=== PATIENT | female | born 1960 | race Caucasian/White ===

== ENCOUNTER → 2020-10-20 09:46 | Outpatient (CLI) | payer OTHER, SELFPAY ==
--- NOTE | ~2020-10-20 | US_ITS ---
EXAMINATION: US thyroid DATE: 10/20/2020 10:19 INDICATION: Nontoxic multinodular goiter. TECHNIQUE: Multiple ultrasound images of the thyroid were obtained. COMPARISON: Ultrasound 03/11/2019, 03/03/2014 FINDINGS: The right thyroid lobe measures 5.4 x 1.5 x 1.8 cm. The left thyroid lobe measures 5.5 x 1.5 x 1.3 c m. The thyroid is diffusely hypoechoic with heterogeneous echogenicity. Vascularity is normal. In th e right thyroid lobe, there is a 9 mm solid, very hypoechoic, [id number]-[id number] nodule with ill-defined margin without echogenic foci (TI-RADS TR4). In the left thyroid lobe, there is a 7 mm solid, very h ypoechoic, olpmb-[id number]-[id number] nodule with smooth margin without echogenic foci (TR4). IMPRESSION: 1. Stable small thyroid nodules, likely not clinically significant. No follow-up is needed. Reviewed, dictated and finalized at location B. IMPRESSION: 1. Stable small thyroid nodules, likely not clinically significant. No follow-u p is needed.
== END ==
PROVIDERS: PCP Internal Medicine; Visit Provider Internal Medicine Endocrinology, Diabetes & Metabolism
DX: E04.2 Nontoxic multinodular goiter (principal)
CPT/HCPCS: 76536

== ENCOUNTER 2020-11-01 08:56 | Outpatient (RCR) | payer OTHER, SELFPAY ==
[2020-11-01 09:06] VITALS: BMI 30.2
[2020-11-01 09:08] VITALS: BMI 30.2
== END 2021-01-15 12:01 | disposition home or self-care (01) ==
LOC: ANHDMC 08:56
PROVIDERS: PCP Internal Medicine; Visit Provider Internal Medicine
DX: E66.9 Obesity, unspecified (principal); E78.5 Hyperlipidemia, unspecified; R73.03 Prediabetes; K76.0 Fatty (change of) liver, not elsewhere classified; Z71.3 Dietary counseling and surveillance
CPT/HCPCS: 97802

== ENCOUNTER → 2021-08-10 07:35 | Outpatient (CLI) | payer OTHER, SELFPAY ==
--- NOTE | ~2021-08-10 | XR_ITS ---
XR lumbar spine 2-3V DATE: 08/10/2021 08:14 INDICATION: Right knee and leg pain TECHNIQUE: AP, lateral and coned lateral lumbosacral views COMPARISON: None FINDINGS: There is diffuse osteopenia. There is slight dextroscoliosis of the lumbar spine. There is normal alignment of the lumbar spine. No fracture or bone destruction is evident. The includ ed lower thoracic and lumbar pedicles are intact. There is moderately prominent degenerative disc disease at T12-L1, L1 to and severe degenerative disc disease at L2-3. There is moderate degenerative disc disease at L3-4. The sacroiliac joints are intact. IMPRESSION: Multilevel degenerative disc disease, most pronounced at L2-3 Osteopenia Reviewed, dictated and finalized at location A. AR WORKER
--- NOTE | ~2021-08-10 | XR_ITS ---
XR knee RT min 4V DATE: 08/10/2021 08:14 INDICATION: Right knee and leg pain TECHNIQUE: Welch, standing AP, PA and lateral views COMPARISON: None FINDINGS: Superior pole patellar enthesopathy at quadriceps tendon insertion. No fracture or dislocation, periosteal reaction or bone destruction is detected. There is moderate amount loss of joint space height at the medial compartment likely due to osteoarth ritis. No fracture or dislocation or joint effusion. No periosteal reaction or bone destruction, radiopaque intra-articular loose body or chondrocalcinosis. IMPRESSION: Mild osteoarthritis at the patellofemoral joint Reviewed, dictated and finalized at location A. ASSOC
== END ==
PROVIDERS: PCP Internal Medicine; Visit Provider Internal Medicine
DX: M17.11 Unilateral primary osteoarthritis, right knee (principal); M51.36 Other intervertebral disc degeneration, lumbar region; M85.88 Other specified disorders of bone density and structure, other site
CPT/HCPCS: 72100; 73564

== ENCOUNTER 2021-12-06 07:07 | Outpatient (CLI) | payer OTHER, SELFPAY ==
--- NOTE | ~2021-12-06 | MM_ITS ---
EXAMINATION: MM screening [facility] BI w júnior HISTORY: Screening TECHNIQUE: Craniocaudal and mediolateral oblique 3-D tomosynthesis images were obtained and synthetic 2-D images were generated. CAD analysis was submitted and interpreted. COMPARISON: Comparison to multiple prior studies sequentially, with oldest reviewed study dated 01/28. BREAST PARENCHYMAL COMPOSITION: There are scattered areas of fibroglandular density. FINDINGS: There is no evidence of suspicious mass, calcification, or architectural distortion to sugg est malignancy in either breast. There has been no suspicious interval change. IMPRESSION: 1. No mammographic evidence of malignancy. 2. Recommend routine screening mammography in one year. BI-RADS Category 1: Negative Reviewed, dictated and finalized at location A.
== END 2021-12-06 07:08 | disposition home or self-care (01) ==
LOC: CHSIMG 07:09
PROVIDERS: PCP Internal Medicine; Visit Provider Internal Medicine
DX: Z12.31 Encounter for screening mammogram for malignant neoplasm of breast (principal)
CPT/HCPCS: 77063; 77067

== ENCOUNTER → 2021-12-27 10:16 | Outpatient (CLI) | payer OTHER, SELFPAY ==
--- NOTE | ~2021-12-27 | US_ITS ---
EXAMINATION: US transvaginal DATE: 12/27/2021 11:07 INDICATION: Cervical polyp. Postmenopausal. TECHNIQUE: Multiple transvaginal sonographic images of the pelvis were obtained. COMPARISON: None. FINDINGS: The uterus measures 7.1 x 4.6 x 4.8 cm. There is no free fluid in the pelvis. The endometrial complex measures 4 mm in thickness. There is a 1.7 cm submucosal fibroid. The cervix is normal. The ovaries are not visualized. IMPRESSION: 1. 1.7 cm submucosal fibroid. Reviewed, dictated and finalized at location A.
== END ==
PROVIDERS: PCP Internal Medicine; Visit Provider Internal Medicine
DX: Z78.0 Asymptomatic menopausal state (principal); N84.1 Polyp of cervix uteri
CPT/HCPCS: 76830

== ENCOUNTER → 2022-04-04 09:40 | Outpatient (CLI) | payer OTHER, SELFPAY ==
--- NOTE | ~2022-04-04 | DEXA_ITS ---
Bone Density Report Name: NALINI FAUSTIN Age: 61 Sex: Female Ethnicity: White Date of : 1960 Indication: postmenopausal; screening for osteoporosis; height loss; Referring Provider: Shakeel Fuentes Study: Bone densitometry was performed. Exam Date: April 04, 2022 Accession number: [id number] Bone Density: Region BMD T-score Z-score Classification AP Spine (L1, L4) 1.011 -0.2 1.4 Normal Femoral Neck (Left) 0.852 0.0 1.5 Normal Total Hip (Left) 0.998 0.5 1.6 Normal Femoral Neck (Right) 0.843 -0.1 1.4 Normal Total Hip (Right) 0.995 0.4 1.6 Normal Total Hip Mean 0.997 0.5 1.6 Normal World Health Organization criteria for BMD impression classify patients as: Normal (T-score at or above -1.0), Osteopenia (T-score between -1.0 and -2.5), or Osteoporosis (T-score at or below -2.5). 10-year Fracture Risk: FRAX not reported because: All T-scores for Spine Total, Hip Total, Femoral Neck at or above -1.0 Clinical Information Provided by Patient: Has used the following medications: Vitamin D, MTV Patient maximum height was 67.75 Menopause Age: 46 No regular weight bearing exercise Drinks caffeinated beverages Onset of menses at age 10 Number of children 1 Impression: The patient has normal bone mass. Discussion: BONE DENSITY IS ABOVE THE MINIMUM DESIRABLE LEVEL AT ALL SKELETAL SITES TESTED. This patient?s bone mineral density is above the minimum desirable level (T-score -1.0 or better) at all sites measured. The patient should follow a healthful lifestyle (good nutrition with adequate calcium and vitamin D, and appropriate weight-bearing exercise). Follow-Up: Consider repeating this study in 5 years or sooner if there is some new clinical indication. Reported by: [facility] on 04/04/2022 10:11:00 AM. Reviewed, dictated and finalized at location ASrinath DAVENPORT
== END ==
PROVIDERS: PCP Internal Medicine; Visit Provider Internal Medicine
DX: M81.0 Age-related osteoporosis without current pathological fracture (principal)
CPT/HCPCS: 77080

== ENCOUNTER 2022-12-12 07:16 | Outpatient (CLI) | payer OTHER, SELFPAY ==
--- NOTE | ~2022-12-12 | MM_ITS ---
EXAMINATION: MM screening [facility] BI w júnior HISTORY: Screening mammogram, family history of breast cancer in her mother. TECHNIQUE: Craniocaudal and mediolateral oblique 3-D tomosynthesis images were obtained and synthetic 2-D images were generated. CAD analysis was submitted and interpreted. COMPARISON: 12/06/2021, 05/05/2019, 05/04/2018 BREAST PARENCHYMAL COMPOSITION: There are scattered areas of fibroglandular density. FINDINGS: No suspicious mass, calcification, or architectural distortion are identified in either tyson ast to suggest malignancy. There has been no suspicious interval change. IMPRESSION: 1. No mammographic evidence of malignancy. 2. Recommend routine screening mammography in one year. BI-RADS Category 1: Negative Reviewed, dictated and finalized at location A.
== END 2022-12-12 07:17 | disposition home or self-care (01) ==
LOC: CHSIMG 07:18
PROVIDERS: PCP Internal Medicine; Visit Provider Internal Medicine
DX: Z12.31 Encounter for screening mammogram for malignant neoplasm of breast (principal)
CPT/HCPCS: 77063; 77067

== ENCOUNTER 2024-01-01 13:34 | Outpatient (CLI) | payer MEDICARE, OTHER, SELFPAY ==
--- NOTE | ~2024-01-01 | MM_ITS ---
EXAMINATION: MM screening [facility] BI w júnior HISTORY: Screening TECHNIQUE: Craniocaudal and mediolateral oblique 3-D tomosynthesis images were obtained and synthetic 2-D images were generated. CAD analysis was submitted and interpreted. COMPARISON: Comparison to multiple prior studies sequentially, with oldest reviewed study dated 04/10. BREAST PARENCHYMAL COMPOSITION: Not dense: There are scattered areas of fibroglandular density. FINDINGS: There is no evidence of suspicious mass, calcification, or architectural distortion to sugg est malignancy in either breast. There has been no suspicious interval change. IMPRESSION: 1. No mammographic evidence of malignancy. 2. Recommend routine screening mammography in one year. BI-RADS Category 1: Negative Reviewed, dictated and finalized at location B.
--- NOTE | 2024-01-01 13:46 | ECHO_ITS ---
Patient Info Name: Tawana Lange Age: 63 years : 1960 Gender: Female Ht: 66 in Wt: 184 lbs BSA: 2.00 m2 HR: 92 bpm BP: 161 / 95 mmHg Technical Quality: Fair Exam Date: 01/01/2024 2:05 PM Exam Location: [facility] Patient Status: Outpatient Admit Date: 01/01/2024 Staff Ordering Physician: Shakeel Fuentes MD [employer] Trimmer: Valentin Lyles RDCS Attending Provider: Shakeel Fuentes MD Exam Type: CA echo doppler color flow Study Info Indications - HTN Complete two-dimensional, color flow and Doppler transthoracic echocardiogram is performed. Summary 1. Complete two-dimensional, color flow and Doppler transthoracic echocardiogram is performed. 2. Left ventricular chamber dimension is normal. 3. Left ventricular systolic function is normal, estimated at 55-60%. 4. The left ventricular diastolic function is grade I diastolic dysfunction. 5. E/e' 6 is not elevated. 6. No pulmonary hypertension, estimated pulmonary arterial systolic pressure is 8 mmHg. Left Ventricle E/e' 6 is not elevated. Left ventricular chamber dimension is normal. Left ventricular systolic function is normal, estimated at 55-60%. The left ventricular diastolic function is grade I diastolic dysfunction. Right Ventricle Right ventricular systolic function is normal and with normal TAPSE 2.2 cm. Right ventricular chamber dimension is normal. Left Atria Left atrial chamber dimension is normal. Right Atria Right atrial chamber dimension is normal. Aortic Valve The aortic valve is trileaflet. There is no aortic valve stenosis. There is no aortic valve regurgitation. Pulmonic Valve There is no pulmonic regurgitation. Mitral Valve There is no mitral valve stenosis. There is no mitral valve regurgitation. Tricuspid Valve There is no tricuspid valve regurgitation. No pulmonary hypertension, estimated pulmonary arterial systolic pressure is 8 mmHg. Pericardium/Pleural There is no pericardial effusion. Inferior Vena Cava Normal inferior vena cava with >50% collapse upon inspiration consistent with normal right atrial pressure, 5 mmHg. Aorta The aortic root size at the sinus of Valsalva is normal. Left Ventricular Outflow Tract Name Value Normal LVOT 2D LVOT Diameter 2.1 cm LVOT Doppler LVOT Peak Velocity 111 cm/s LVOT Peak Gradient 5 mmHg LVOT Mean Gradient 3 mmHg LVOT VTI 20 cm LVOT VTI/AV VTI Ratio 1.0 LVOT Stroke Volume 71 ml Pulmonic Valve Name Value Normal PV Doppler PV Peak Velocity 85 cm/s PV Peak Gradient 3 mmHg Mitral Valve Name Value Normal MV Doppler
== END 2024-01-01 13:35 | disposition home or self-care (01) ==
PROVIDERS: PCP Internal Medicine; Visit Provider Internal Medicine
DX: Z12.31 Encounter for screening mammogram for malignant neoplasm of breast (principal); I10 Essential (primary) hypertension
CPT/HCPCS: 77063; 77067; 93306

== ENCOUNTER 2024-12-06 07:14 | Outpatient (CLI) | payer MEDICARE, SELFPAY ==
[2024-12-06 07:41] LABS: Basophils Absolute Auto 0.05 K/mm3 (0.00-0.10); Basophils Percent Auto 0.7 % (0.0-1.0); Eosinophils Absolute Auto 0.17 K/mm3 (0.02-0.50); Eosinophils Percent Auto 2.3 % (1.0-6.0); Hematocrit 49.1 % (35.0-42.0); Hemoglobin 16.1 g/dL (11.7-13.8); Immature Granulocyte Absolute 0.02 K/mm3 (0.00-0.00); Immature Granulocyte Percent A 0.3 % (0.0-0.0); Lymphocytes Absolute Auto 2.31 K/mm3 (1.10-4.50); Lymphocytes Percent Auto 30.6 % (18.0-42.0); Mean Corpuscular HGB Conc 32.8 g/dL (32-36); Mean Corpuscular Hemoglobin 29.5 pg (27.0-31.0); Mean Corpuscular Volume 90.1 fL (78.0-102.0); Mean Platelet Volume 8.6 fl (9.2-11.8); Monocytes Absolute Auto 0.49 K/mm3 (0.10-0.90); Monocytes Percent Auto 6.5 % (2.0-11.0); Neutrophils Absolute Auto 4.51 K/mm3 (1.70-7.20); Neutrophils Percent Auto 59.6 % (50.0-70.0); Platelet Count Result 423 K/mm3 (150-420); Red Blood Count 5.45 M/mm3 (4.20-5.40); Red Cell Distribution Width 13.7 % (11.6-14.4); White Blood Count 7.6 K/mm3 (4.8-10.8)
[2024-12-06 07:42] LABS: Add Urine Microscopic? YES; Appearance Urine Clear (Clear); Bilirubin Urine Negative (Negative); Blood Urine Trace-intact (Negative); Color Urine Light Yellow (Yellow); Glucose Urine UA Negative (Negative); Ketones Urine Negative (Negative); Leukocyte Esterase Ur 1+ (Negative); Nitrate Urine Negative (Negative); Protein Urine Negative (Negative); Urobilinogen Urine 0.2 mg/dL (0.2-1.0)
[2024-12-06 08:02] LABS: Bacteria Urine Trace /hpf; RBC Urine None seen /hpf (0-2); Squamous Epithelial Cell Urine Moderate /hpf (Few)
[2024-12-06 08:32] LABS: Alanine Aminotransferase 37 U/L (6-35); Albumin Level 4.3 g/dL (3.5-5.1); Alkaline Phosphatase 104 U/L (38-126); Anion Gap 6 mmol/L (4-12); Aspartate Amino Transferase 32 U/L (14-36); Bilirubin,Total 0.7 mg/dL (0.2-1.3); Blood Urea Nitrogen 11 mg/dL (7-17); Calcium 9.7 mg/dL (8.4-10.2); Carbon Dioxide 30 mmol/L (22-30); Chloride 102 mmol/L (98-107); Cholesterol 160 mg/dL (0-200); Estimated Glomerular Filt Rate > 60; Glucose 112 mg/dL (65-110); HDL Direct 46 mg/dL; LDL Cholesterol Calculated 85 mg/dL (<130); Osmolality Calculated 286 mOsm/kg (285-295); Potassium 4.1 mmol/L (3.4-5.0); Sodium 138 mmol/L (137-145); Total Protein 7.3 g/dL (6.3-8.2); Triglycerides 145 mg/dL (<150)
== END 2024-12-06 07:15 | disposition home or self-care (01) ==
LOC: CHSLAB 07:16
PROVIDERS: PCP Internal Medicine; Visit Provider Internal Medicine
DX: I10 Essential (primary) hypertension (principal); E78.5 Hyperlipidemia, unspecified
CPT/HCPCS: 36415; 80053; 80061; 81001; 85025

== ENCOUNTER 2025-01-03 07:12 | Outpatient (CLI) | payer MEDICARE, OTHER, SELFPAY ==
--- NOTE | ~2025-01-03 | MM_ITS ---
EXAMINATION: MM screening [facility] BI w júnior HISTORY: Screening TECHNIQUE: Craniocaudal and mediolateral oblique 3-D tomosynthesis images were obtained and synthetic 2-D images were generated. CAD analysis was submitted and interpreted. COMPARISON: Comparison to multiple prior studies sequentially, with oldest reviewed study dated 04/10. BREAST PARENCHYMAL COMPOSITION: Not dense: There are scattered areas of fibroglandular density. FINDINGS: There is no evidence of suspicious mass, calcification, or architectural distortion to sugg est malignancy in either breast. There has been no suspicious interval change. IMPRESSION: 1. No mammographic evidence of malignancy. 2. Recommend routine screening mammography in one year. BI-RADS Category 1: Negative Reviewed, dictated and finalized at location B.
== END 2025-01-03 07:13 | disposition home or self-care (01) ==
LOC: CHSIMG 07:14
PROVIDERS: PCP Internal Medicine; Visit Provider Internal Medicine
DX: Z12.31 Encounter for screening mammogram for malignant neoplasm of breast (principal)
CPT/HCPCS: 77063; 77067

== ENCOUNTER 2025-03-14 07:01 | Outpatient (CLI) | payer MEDICARE, OTHER, SELFPAY ==
[2025-03-14 07:42] LABS: Hemoglobin A1C 5.8 % (<5.7)
[2025-03-14 07:47] LABS: Alanine Aminotransferase 31 U/L (6-35); Albumin Level 4.5 g/dL (3.5-5.1); Alkaline Phosphatase 99 U/L (38-126); Anion Gap 11 mmol/L (4-12); Aspartate Amino Transferase 30 U/L (14-36); Bilirubin,Total 0.8 mg/dL (0.2-1.3); Blood Urea Nitrogen 12 mg/dL (7-17); Calcium 10.3 mg/dL (8.4-10.2); Carbon Dioxide 29 mmol/L (22-30); Chloride 97 mmol/L (98-107); Estimated Glomerular Filt Rate > 60; Glucose 113 mg/dL (65-110); Magnesium 1.9 mg/dL (1.6-2.3); Osmolality Calculated 284 mOsm/kg (285-295); Potassium 4.0 mmol/L (3.4-5.0); Sodium 137 mmol/L (137-145); Total Protein 8.1 g/dL (6.3-8.2)
== END 2025-03-14 07:02 | disposition home or self-care (01) ==
LOC: CHSLAB 07:04
PROVIDERS: PCP Internal Medicine; Visit Provider Internal Medicine
DX: R73.03 Prediabetes (principal); I10 Essential (primary) hypertension
CPT/HCPCS: 36415; 80053; 83036; 83735

== ENCOUNTER 2025-04-15 08:37 | Outpatient (CLI) | payer MEDICARE, OTHER, SELFPAY ==
--- NOTE | ~2025-04-15 | US_ITS ---
EXAMINATION: US thyroid DATE: 04/15/2025 09:18 INDICATION: Thyroid nodule TECHNIQUE: Multiple ultrasound images of the thyroid were obtained. COMPARISON: October 20, 2020 FINDINGS: The right thyroid lobe measures 4.5 x 1.4 x 1.8 cm. The left thyroid lobe measures 3.7 x 1.5 x 1.4 cm. Echotexture of the thyroid is mildly heterogeneous throughout. In the inferior pole of the right lobe is a 10 x 7 x 6 mm nodule which measured 9 x 8 x 6 mm on the previous exam. In the left lobe, a 6 x 6.4 mm inferior pole nodule is not clearly changed. Both of these thyroid nodules are sonographically indeterminate with TI-RADS 3 features. IMPRESSION: 1. No gross interval change in sonographically indeterminate nodules. 2. Recommend correlation with follow-up surveillance thyroid ultrasound in 12 months with recommended date adnexa exam on about April 15, 2026. Reviewed, dictated and finalized at location A. RAM ELIGIBILITY SPECIALIST IMPRESSION: 1. No gross interval change in sonographically indeterminate nodules. 2. Recommend correlation with follow-up surveillance thyroid ultrasound in 12 m [facility] with recommended date adnexa exam on about April 15, 2026.
== END 2025-04-15 08:38 | disposition home or self-care (01) ==
PROVIDERS: PCP Internal Medicine; Visit Provider Internal Medicine Endocrinology, Diabetes & Metabolism
DX: E04.1 Nontoxic single thyroid nodule (principal)
CPT/HCPCS: 76536

== ENCOUNTER 2025-04-22 07:04 | Outpatient (CLI) | payer MEDICARE, OTHER, SELFPAY ==
[2025-04-22 07:34] LABS: Hemoglobin A1C 5.7 % (<5.7)
[2025-04-22 08:51] LABS: Free T4 Free Thyroxine 1.59 ng/dL (0.78-2.19)
[2025-04-22 09:05] LABS: Thyroid Stimulating Hormone 2.720 uIU/mL (0.465-4.680)
== END 2025-04-22 07:05 | disposition home or self-care (01) ==
LOC: CHSLAB 07:05
PROVIDERS: PCP Internal Medicine; Visit Provider Internal Medicine Endocrinology, Diabetes & Metabolism
DX: R73.09 Other abnormal glucose (principal); R73.03 Prediabetes; E03.9 Hypothyroidism, unspecified
CPT/HCPCS: 36415; 83036; 84439; 84443

== ENCOUNTER 2025-05-26 11:38 | Outpatient (CLI) | payer MEDICARE, OTHER, SELFPAY ==
[2025-05-26 12:03] LABS: Hematocrit 46.4 % (35.0-42.0); Hemoglobin 15.7 g/dL (11.7-13.8); Mean Corpuscular HGB Conc 33.8 g/dL (32-36); Mean Corpuscular Hemoglobin 29.9 pg (27.0-31.0); Mean Corpuscular Volume 88.4 fL (78.0-102.0); Platelet Count Result 409 K/mm3 (150-420); Red Blood Count 5.25 M/mm3 (4.20-5.40); White Blood Count 8.5 K/mm3 (4.8-10.8)
[2025-05-26 12:08] LABS: Add Urine Microscopic? YES; Appearance Urine Clear (Clear); Glucose Urine UA Negative (Negative); Leukocyte Esterase Ur Trace LEU/UL (Negative); Nitrate Urine Negative (Negative); Specific Grav Ur 1.020 (1.010-1.020)
[2025-05-26 12:19] LABS: Alanine Aminotransferase 35 U/L (6-35); Albumin Level 4.9 g/dL (3.5-5.1); Alkaline Phosphatase 101 U/L (38-126); Anion Gap 11 mmol/L (4-12); Aspartate Amino Transferase 34 U/L (14-36); Bilirubin,Total 0.7 mg/dL (0.2-1.3); Blood Urea Nitrogen 13 mg/dL (7-17); CRP < 0.5 mg/dL (<1.0); Calcium 10.0 mg/dL (8.4-10.2); Carbon Dioxide 27 mmol/L (22-30); Chloride 97 mmol/L (98-107); Creatine Kinase 65 U/L (30-135); Estimated Glomerular Filt Rate > 60; Glucose 101 mg/dL (65-110); Osmolality Calculated 280 mOsm/kg (285-295); Potassium 3.6 mmol/L (3.4-5.0); Sodium 135 mmol/L (137-145); Total Protein 8.2 g/dL (6.3-8.2)
[2025-05-26 12:28] LABS: NT Pro B Type Natriuretic Pept 63 pg/mL (19.9-100); Troponin I < 0.012 ng/mL (0.000-0.034)
[2025-05-26 12:32] LABS: Free T3 3.12 pg/mL (2.18-3.98)
[2025-05-26 12:34] LABS: Free T4 Free Thyroxine 1.44 ng/dL (0.78-2.19)
[2025-05-26 12:47] LABS: Thyroid Stimulating Hormone 1.300 uIU/mL (0.465-4.680)
== END 2025-05-26 11:39 | disposition home or self-care (01) ==
LOC: CHSLAB 11:41
PROVIDERS: PCP Internal Medicine; Visit Provider Internal Medicine
DX: R53.1 Weakness (principal); I10 Essential (primary) hypertension; F41.9 Anxiety disorder, unspecified; R00.2 Palpitations; R06.9 Unspecified abnormalities of breathing
CPT/HCPCS: 36415; 80053; 81001; 82550; 82553; 83880; 84439; 84443; 84481; 84484; 85027; 86140